=== PATIENT | female | born 1965 | race Caucasian/White ===

== ENCOUNTER 2024-10-23 00:10 | Emergency (ER) | payer OTHER, SELFPAY ==
--- NOTE | ~2024-10-23 | CT_ITS ---
CT of the Abdomen and Pelvis: Indication: Abdominal pain Technique: 2.5 mm axial scans were obtained through the abdomen and pelvis following intravenous adm inistration of 100 cc of Omnipaque 350. Dose reduction technique was used on this scan by utilizing a utomated exposure control and iterative reconstruction technique. The dose-length product (DLP) was 3 90.50 mGy-cm. Findings: Scans through the lung bases are unremarkable. The liver, spleen, pancreas, gallbladder, adrenals and kidneys are within normal limits. No evidence of aortic aneurysm. No lymphadenopathy. Multiple fluid-filled small bowel loops are present without definite obstruction. Questionable mild w all thickening of the distal sigmoid colon/rectum. No abscess or free air. Images through the pelvis were performed. Urinary bladder unremarkable. No pelvic mass seen. Impression: Multiple fluid-filled mildly distended small bowel loops. No high-grade obstruction evident. Findings could be related to Crohn's disease or other enterocolitis. Probable mild wall thickening of the distal sigmoid colon/rectum, which could reflect Crohn's involve ment. Reviewed, dictated and finalized at [facility]. Impression: Multiple fluid-filled mildly distended small bowel loops. No high-grade obstruc tion evident. Findings could be related to Crohn's disease or other enterocolit is. Probable mild wall thickening of the distal sigmoid colon/rectum, which could r eflect Crohn's involvement.
[2024-10-23 00:22] VITALS: BP 160/103; PULSE 79; RESP 18; TEMP 36.7; O2SAT 98
[2024-10-23 01:26] VITALS: BP 169/98; PULSE 80; RESP 23; O2SAT 100
[2024-10-23 01:31] VITALS: BP 119/97; PULSE 71; RESP 16; O2SAT 100
[2024-10-23] MEDS: ONDANSETRON INJ 4 MG/2 ML VIAL IV PUSH ×2 (01:40→04:04)
[2024-10-23 01:56] LABS: BEDSIDEPREGUCG Negative (Negative)
[2024-10-23 02:00] LABS: Alanine Aminotransferase 22 U/L (6-35); Albumin Level 5.1 g/dL (3.5-5.1); Alkaline Phosphatase 108 U/L (38-126); Anion Gap 11 mmol/L (4-12); Aspartate Amino Transferase 46 U/L (14-36); Bilirubin,Total 1.0 mg/dL (0.2-1.3); Blood Urea Nitrogen 18 mg/dL (7-17); Calcium 11.0 mg/dL (8.4-10.2); Carbon Dioxide 30 mmol/L (22-30); Chloride 101 mmol/L (98-107); Estimated Glomerular Filt Rate 43; Glucose 142 mg/dL (65-110); Lipase 103 U/L (23-300); Potassium 5.0 mmol/L (3.4-5.0); Sodium 142 mmol/L (137-145); Total Protein 10.0 g/dL (6.3-8.2)
[2024-10-23 02:13] LABS: Hematocrit 47.3 % (37.0-47.0); Hemoglobin 15.6 g/dL (12.0-15.0); Immature Granulocyte Percent A 0.8 % (0-0.5); Lymphocytes Absolute Auto 1.97 K/mm3 (0.9-3.2); Mean Corpuscular HGB Conc 33.0 g/dl (32-36); Mean Corpuscular Hemoglobin 29.8 pg (26-34); Mean Corpuscular Volume 90.4 fl (80-100); Nucleated Red Blood Cells Absolute Auto 0.000 K/mm3 (0.0-0.012); Nucleated Red Blood Cells Perc 0.0 % (0.0-0.2); Platelet Count Result 315 k/mm3 (150-375); Red Blood Count 5.23 M/mm3 (4.2-5.4); White Blood Count 15.8 K/mm3 (4.5-10.0)
[2024-10-23 02:15] LABS: Add Urine Microscopic? YES; Appearance Urine Clear (Clear); Glucose Urine UA Negative (Negative); Leukocyte Esterase Ur Trace LEU/UL (Negative); Nitrate Urine Negative (Negative); Specific Grav Ur 1.011 (1.001-1.035)
[2024-10-23] MEDS: LACTATED RINGERS 1,000 ML 999 ML IV CONT ×2 (02:39)
--- NOTE | 2024-10-23 03:46 | ED.ABDPAIN ---
HPI - Abdominal Pain General Chief Complaint: Abdominal Pain Stated Complaint: Abdominal pain Time Seen by Provider: 10/23/24 02:26 History of Present Illness HPI narrative: 58-year-old female with history of Crohn's disease on biologic agents including Humira and previously on daily steroids, methotrexate. Patient presents to the emergency department with the suspected Crohn's flare. Symptoms started last night and into this morning. Associated nausea and vomiting with some abdominal pain. Feels very similar to her previous Crohn's flares. Has a specialist at [facility] but recently moved to [place]. No shortness a breath, chest pain, pelvic pain or back pain. No abdominal surgery history is or fistula history is. 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 No recent medication changes in her last flare-up was in January of last year and she normally gets about 1 per year. Denies any urinary tract infection symptoms, states that she normally control her symptoms with MiraLax and diet in addition to the Humira. Related Data Allergies Allergy/AdvReac Type Severity Reaction Status Date / Time No Known Allergies Allergy Mild Verified 10/23/24 00:37 Review of Systems Review of Systems: As reviewed above in HPI Exam Narrative: GENERAL: [Well-appearing, well-nourished, and in no acute distress.] HEAD: [Normocephalic, atraumatic.] EYES: [PERRLA and EOMI.] ENT: Nares clear, no rhinorrhea or epistaxis. Mucous membranes dry. NECK: Supple. CHEST: [Clear to auscultation. No respiratory distress.] HEART: [Regular rate and rhythm]. No murmur heard. [Normal peripheral pulses.] ABDOMEN: [Soft, nondistended], tender to palpation in the right-sided upper and lower quadrants without any rebound or guarding, no signs of peritonitis or overlying skin changes EXTREMITIES: Normal range of motion. [No edema.] SKIN: Warm, dry, no rash. NEURO: [No focal deficits]. Alert and oriented [x3.] PSYCH: [Normal mood and affect.] Course Vital Signs Vital signs: Vital Signs Temperature 36.7 C 10/23/24 00:22 Pulse Rate 79 10/23/24 00:22 Respiratory Rate 18 10/23/24 00:22 Blood Pressure 160/103 H 10/23/24 00:22 Pulse Oximetry 98 10/23/24 00:22 Temperature 36.7 C 10/23/24 00:22 Pulse Rate 71 10/23/24 01:31 Respiratory Rate 16 10/23/24 01:31 Blood Pressure 119/97 H 10/23/24 01:31 Pulse Oximetry 100 10/23/24 01:31 MDM - Abdominal Pain MDM Narrative Medical decision making narrative: 58-year-old female with history of Crohn's disease on biologic agents including Humira and previously on daily steroids, methotrexate. Patient presents to the emergency department with the suspected Crohn's flare. Symptoms started last night and into this morning. Associated nausea and vomiting with some abdominal pain. Feels very similar to her previous Crohn's flares. Has a specialist at [facility] but recently moved to [place]. No shortness a breath, chest pain, pelvic pain or back pain. No abdominal surgery history is or fistula history is. 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 No recent medication changes in her last flare-up was in January of last year and she normally gets about 1 per year. Denies any urinary tract infection symptoms, states that she normally control her symptoms with MiraLax and diet in addition to the Humira. Patient does have a tender abdomen although reassuring vital signs with any fever, hypertension, tachycardia. No hypoxia. She states this feels like a Crohn's flare to her and normally gets treated with symptom control. She has had admissions in the past but states that this is not as severe as those episodes. CBC, CMP, lipase ordered, CT abdomen pelvis with IV contrast obtained. She was given fluid rehydration, Dilaudid and Zofran for analgesia and symptom control. Patient re-evaluated had significant improvement after pain control and fluids. No longer in any pain and no longer nauseous or vomiting. Laboratory studies do show some dehydration with hemoconcentrated CBC but minor elevation white count consistent with her Crohn's flare. Normal platelet count. Electrolytes are unremarkable, mildly elevated creatinine with no baseline to compare to but likely dehydration related that she did respond to fluids. Urinalysis without any signs of infection. CT scan shows multiple fluid-filled bowel loops but no bowel obstruction consistent with Crohn's disease with wall thickening in the distal sigmoid consistent with Crohn's but no fistulas or obvious abscess formation. Given patient's clinical improvement in hemodynamic stable vital signs and able to tolerate oral intake I believe she can be safely discharged home at this time. She would prefer not to start any kind of steroids or treatments and will contact her GI doctor in the morning for further recommendations outpatient follow-up. Patient given return precautions and discharge home at this time. She has Zofran at home and does not require any prescriptions at this time. Medical Records Attestation: I reviewed the patient's medical records. Lab Data Attestation: I reviewed the patient's lab results. 10/23/24 01:39 10/23/24 01:39 Labs: Lab Results 10/23/24 10/23/24 10/23/24 Range/Units 01:39 01:51 01:53 WBC 15.8 H (4.5-10.0) K/mm3 RBC 5.23 (4.2-5.4) M/mm3 Hgb 15.6 H (12.0-15.0) g/dL Hct 47.3 H (37.0-47.0) % MCV 90.4 (80-100) fl MCH 29.8 (26-34) pg MCHC 33.0 (32-36) g/dl RDW 12.7 (11.5-14.5) % Plt Count 315 (150-375) k/mm3 MPV 10.7 H (7.4-10.4) fl Immature Gran % (Auto) 0.8 H (0-0.5) % Neut % (Auto) 79.4 H (45.5-73.1) % Lymph % (Auto) 12.5 L (18.3-44.2) % Lassen % (Auto) 6.4 (2.6-8.5) % Eos % (Auto) 0.3 (0-4.4) % Baso % (Auto) 0.6 (0.2-1.2) % Lymph # (Auto) 1.97 (0.9-3.2) K/mm3 Lassen # (Auto) 1.0 H (0.1-0.6) K/mm3 Eos # (Auto) 0.0 (0-0.3) K/mm3 Baso # (Auto) 0.1 (0.0-0.1) K/mm3 Abs Immat Gran (auto) 0.12 H (0.00-0.031) K/mm3 Absolute Neuts (auto) 12.6 H (1.3-6.7) K/mm3 Absolute Nucleated RBC 0.000 (0.0-0.012) K/mm3 Nucleated RBC % 0.0 (0.0-0.2) % Sodium 142 (137-145) mmol/L Potassium 5.0 (3.4-5.0) mmol/L Chloride 101 (98-107) mmol/L Carbon Dioxide 30 (22-30) mmol/L Anion Gap 11 (4-12) mmol/L BUN 18 H (7-17) mg/dL Creatinine 1.28 H (0.7-1.0) mg/dL Estim Creat Clear Calc Not Reportable Estimated GFR 43 L (59 - ) Glucose 142 H (65-110) mg/dL Calcium 11.0 H (8.4-10.2) mg/dL Total Bilirubin 1.0 (0.2-1.3) mg/dL AST 46 H (14-36) U/L ALT 22 (6-35) U/L Alkaline Phosphatase 108 (38-126) U/L Total Protein 10.0 H (6.3-8.2) g/dL Albumin 5.1 (3.5-5.1) g/dL Lipase 103 (23-300) U/L Urine Color Yellow (Yellow) Urine Appearance Clear (Clear) Urine pH 7.5 (5.0-9.0) Ur Specific Omar 1.011 (1.001-1.035) Urine Protein 2+ H (Negative) mg/dL Urine Glucose (UA) Negative (Negative) mg/dL Urine Ketones Negative (Negative) mg/dL Ur Blood (Man) 1+ H (Negative) Urine Nitrate Negative (Negative) Urine Bilirubin Negative (Negative) Urine Urobilinogen 0.2 (<2.0) mg/dL Leukocyte Esterase Rfl Trace H (Negative) SANDRA/UL Urine RBC 11-20 H (0-2) /hpf Urine WBC 0-5 (0-3) /hpf Ur Squamous Epith Cells None seen (Few) /hpf Urine Bacteria None seen /hpf Urine Casts 3-5 POC Urine HCG, Qual Negative (Negative) Imaging Data Attestation: I personally reviewed and interpreted this imaging study as follows: My impression: Impressions Abdomen/Pelvis CT 10/23/24 05:51 Impression: Multiple fluid-filled mildly distended small bowel loops. No high-grade obstruction evident. Findings could be related to Crohn's disease or other enterocolitis. Probable mild wall thickening of the distal sigmoid colon/rectum, which could reflect Crohn's involvement. Radiologist's impression: ITS Impressions Abdomen/Pelvis CT 10/23/24 05:51 Impression: Multiple fluid-filled mildly distended small bowel loops. No high-grade obstruction evident. Findings could be related to Crohn's disease or other enterocolitis. Probable mild wall thickening of the distal sigmoid colon/rectum, which could reflect Crohn's involvement. Discharge Plan Discharge Clinical Impression: Crohn's colitis, Acute dehydration Patient Disposition: Home Condition: Stable Instructions: Antibiotic Form, Crohn Disease (ED) Additional Instructions: Your CT scan shows Crohn's disease but no acute obstructions or any acute emergent concerns. You did have some dehydration which was corrected with fluids here and your pain is under control. Call your GI doctor in the morning for close follow-up in outpatient recommendations. If you have any new or worsening symptoms please return to the emergency department. Patient Language: Japanese Follow-up/Referrals: PHYSICIAN NOT ON STAFF,NONSTAFF [Primary Care Provider] - Time of Disposition: 06:22
[2024-10-23] MEDS: HYDROmorphone HCL INJ (*CRX) 2 MG/ML VIAL 1 MG IV PUSH (04:04)
== END 2024-10-23 06:40 | disposition home or self-care (01) ==
PROVIDERS: Emergency Provider Student in an Organized Health Care Education/Training Program
DX: K50.90 Crohn's disease, unspecified, without complications (principal); E86.0 Dehydration; Z79.620 Long term (current) use of immunosuppressive biologic
CPT/HCPCS: 36415; 74177; 80053; 81001; 81025; 83690; 85025; 96361; 96374; 96375; 99284; J1171; J2405; J7120; Q9967